=== PATIENT | female | born 1990 | race Caucasian/White ===

== ENCOUNTER 2018-05-22 07:00 | Day surgery (SDC) | payer OTHER ==
[~2018-05-22] VITALS: Ht 160 cm; Wt 58.1 kg
[~2018-05-22 07:00] MED LIST: CEFPROZIL500 MG PO; CIPRO500 MG PO; DOXYCYCLINE HY100 MG PO; DURICEF PO; FLAGYL500MG PO; LEVSIN/SL0.125 MG PO; ORPH100T PO; PANTOPRAZOLE SO20 MG PO; PHENERGAN25 MG PO; PREVACID30 MG PO; PROTONIX40 MG PO; TRAMADOL HCL-AP1 TAB PO; TYLENOL EXTRA500 MG PO; ZANTAC150 M3 PO
[2018-05-22] MEDS ORDERED: CYTOTEC100 MCG PO (17:53)
[2018-05-22] MEDS ORDERED: DOXYCYCLINE HY100 M2 PO (17:53)
== END 2018-05-22 13:00 | disposition home or self-care (01) ==
LOC: CIR.AMB 07:00 → ER 13:47 → EDSTATUS 14:00 → ER 14:13 → SEC-K 14:15 → ER 14:15 → SEC-K 22:11 → O/R 22:11 → SEC-K 22:35
DX: O02.1 Missed abortion (principal)

== ENCOUNTER 2018-12-07 03:29 | Emergency (ER) | payer OTHER ==
[~2018-12-07] VITALS: Ht 160 cm; Wt 62.6 kg
[~2018-12-07 03:29] MED LIST changes: +CYTOTEC100 MCG PO; +DOXYCYCLINE HY100 M2 PO
== END 2018-12-07 10:32 | disposition home or self-care (01) ==
LOC: ER 03:29
DX: N83.292 Other ovarian cyst, left side (principal); N83.291 Other ovarian cyst, right side; R10.2 Pelvic and perineal pain

== ENCOUNTER 2020-05-26 20:40 | Emergency (ER) | payer OTHER ==
[~2020-05-26] VITALS: Ht 160 cm; Wt 65.8 kg
== END 2020-05-26 23:30 | disposition home or self-care (01) ==
LOC: ER 20:40
DX: N93.8 Other specified abnormal uterine and vaginal bleeding (principal); Z33.1 Pregnant state, incidental

== ENCOUNTER 2020-11-25 00:37 | Emergency (ER) | payer OTHER ==
[~2020-11-25] VITALS: Ht 160 cm; Wt 63.5 kg
[2020-11-25] MEDS ORDERED: TENCON 50-3251 EACH PO (06:15)
== END 2020-11-25 06:24 | disposition home or self-care (01) ==
LOC: ER 00:37
DX: R51.9 Headache, unspecified (principal); F06.4 Anxiety disorder due to known physiological condition

== ENCOUNTER 2021-10-23 19:21 | Emergency (ER) | payer OTHER ==
[~2021-10-23] VITALS: Ht 160 cm; Wt 68.0 kg
[~2021-10-23 19:21] MED LIST changes: +TENCON 50-3251 EACH PO
[2021-10-23] MEDS ORDERED: PRENA1 TRUE CO1 EACH PO (19:59)
== END 2021-10-23 22:30 | disposition home or self-care (01) ==
LOC: ER 19:21
DX: O99.611 Diseases of the digestive system complicating pregnancy, first trimester (principal); K92.89 Other specified diseases of the digestive system; O21.8 Other vomiting complicating pregnancy; Z3A.08 8 weeks gestation of pregnancy

== ENCOUNTER 2021-11-16 13:17 | Day surgery (SDC) | payer OTHER ==
[~2021-11-16 13:17] MED LIST changes: +PRENA1 TRUE CO1 EACH PO
[2021-11-16] MEDS ORDERED: MORGIDOX100 MG PO (19:24)
[2021-11-16] MEDS ORDERED: NAPR500T14 PO (19:24)
== END 2021-11-16 22:00 | disposition home or self-care (01) ==
LOC: CIR.AMB 13:17
PROVIDERS: ATTEND Obstetrics & Gynecology
DX: O02.1 Missed abortion (principal); Z20.822 Contact with and (suspected) exposure to COVID-19; Z86.16 Personal history of COVID-19; M32.8 Other forms of systemic lupus erythematosus

== ENCOUNTER 2022-02-25 05:54 | Emergency (ER) | payer OTHER ==
[~2022-02-25] VITALS: Ht 160 cm; Wt 63.5 kg
[~2022-02-25 05:54] MED LIST changes: +MORGIDOX100 MG PO; +NAPR500T14 PO
== END 2022-02-25 13:25 | disposition home or self-care (01) ==
LOC: ER 05:54
DX: N80.9 Endometriosis, unspecified (principal)

== ENCOUNTER 2022-04-10 00:40 | Emergency (ER) | payer OTHER ==
[~2022-04-10] VITALS: Ht 160 cm; Wt 61.2 kg
[2022-04-10] MEDS ORDERED: TRIAZOLAM0.25 MG PO (01:07)
[2022-04-10] MEDS ORDERED: OXYC1TAB9 PO (01:07)
[2022-04-10] MEDS ORDERED: HALCION0.25 MG (01:07)
[2022-04-10] MEDS ORDERED: ONDANSETRON HCL4 MG PO (05:35)
[2022-04-10] MEDS ORDERED: PEPCID AC10 MG PO (05:35)
== END 2022-04-10 05:53 | disposition home or self-care (01) ==
LOC: ER 00:40
DX: R11.2 Nausea with vomiting, unspecified (principal)

== ENCOUNTER 2022-07-10 01:29 | Emergency (ER) | payer OTHER ==
[~2022-07-10] VITALS: Ht 160 cm; Wt 62.6 kg
[~2022-07-10 01:29] MED LIST changes: +HALCION0.25 MG; +ONDANSETRON HCL4 MG PO; +OXYC1TAB9 PO; +PEPCID AC10 MG PO; +TRIAZOLAM0.25 MG PO
== END 2022-07-10 06:33 | disposition home or self-care (01) ==
LOC: ER 01:29
DX: J10.1 Influenza due to other identified influenza virus with other respiratory manifestations (principal); Z20.822 Contact with and (suspected) exposure to COVID-19

== ENCOUNTER 2023-02-28 23:40 | Emergency (ER) | payer OTHER ==
[~2023-02-28] VITALS: Ht 160 cm; Wt 62.6 kg
== END 2023-03-01 15:42 | disposition home or self-care (01) ==
LOC: ER 23:40
PROVIDERS: General Practice
DX: O23.41 Unspecified infection of urinary tract in pregnancy, first trimester (principal); N39.0 Urinary tract infection, site not specified; Z3A.10 10 weeks gestation of pregnancy

== ENCOUNTER 2023-04-30 14:50 | Outpatient (CLI) | payer OTHER | END 2023-04-30 15:20 | disposition home or self-care (01) | LOC: PRENATAL 14:50 | PROVIDERS: ATTEND Obstetrics & Gynecology Maternal & Fetal Medicine | DX: O35.3XX0 Maternal care for (suspected) damage to fetus from viral disease in mother, not applicable or unspecified (principal); Z14.8 Genetic carrier of other disease; O44.00 Complete placenta previa NOS or without hemorrhage, unspecified trimester; Z3A.19 19 weeks gestation of pregnancy ==

== ENCOUNTER 2023-07-30 14:17 | Outpatient (CLI) | payer OTHER | END 2023-07-30 14:19 | disposition home or self-care (01) | LOC: PRENATAL 14:17 | PROVIDERS: ATTEND Obstetrics & Gynecology Maternal & Fetal Medicine | DX: O26.849 Uterine size-date discrepancy, unspecified trimester (principal); O36.8199 Decreased fetal movements, unspecified trimester, other fetus; O99.019 Anemia complicating pregnancy, unspecified trimester; Z3A.32 32 weeks gestation of pregnancy ==

== ENCOUNTER 2023-07-31 13:46 | Outpatient (CLI) | payer OTHER | END 2023-07-31 13:52 | disposition home or self-care (01) | LOC: PRENATAL 13:46 | PROVIDERS: ATTEND Obstetrics & Gynecology Maternal & Fetal Medicine | DX: Z76.1 Encounter for health supervision and care of foundling (principal) ==

== ENCOUNTER 2023-08-02 16:34 | Inpatient (IN) | payer OTHER ==
[~2023-08-02] VITALS: Ht 160 cm; Wt 70.8 kg
[2023-08-02 18:36] LABS: PH,URINE 6.5 (5.0-8.0); URINE APPEARANCE Cloudy; URINE BILIRRUBIN Negative (NEGATIVE); URINE BLOOD Negative; URINE COLOR Yellow; URINE LEUKOCYTE Negative; URINE NITRATE Negative; URINE PROTEIN Trace (NEGATIVE)
[2023-08-02 18:37] LABS: URINE BACTERIA 575.7 uL (0.0-1933); URINE EPITHELIAL CELLS 33.3 uL (0.0-38.8); URINE RBC 16.6 uL (0.0-20.8); URINE WBC 15.6 uL (0.0-23.2)
[2023-08-02 18:45] LABS: HEMATOCRIT 26.1 % (36.0-45.00); MEAN CELL VOLUME 82.2 fL (80.00-100.00); MEAN CORPUSCULAR HGB CONC 33.7 g/dl (32.0-36.0); PLATELET COUNT 173 K/uL (150-450); RED BLOOD COUNT 3.18 M/uL (4.00-6.00); RED CELL DISTRIBUTION WIDTH 14.2 % (11.5-14.5)
[2023-08-02 18:46] LABS: HEMOGLOBIN 8.8 g/dL (12.0-15.00); MEAN CORPUSCULAR HEMOGLOBIN 27.6 pg (27.00-32.0)
[2023-08-02 18:51] LABS: INR 0.95; PARTIAL THROMBOPLASTIN TIME 26.5 SECONDS (22.0-34.0)
[2023-08-02 18:56] LABS: ALBUMIN 2.8 gm/dL (3.4-5.0); BILIRUBIN TOTAL 0.17 mg/dL (0.3-1.2); CALCIUM 8.8 mg/dL (8.5-10.1); CREATININE SERUM 0.45 mg/dL (0.55-1.02); GFR 162.51; GLOBULINA 2.9 G/DL (2.4-3.5); POTASSIUM 3.51 mEq/L (3.5-5.1); TOTAL PROTEIN 5.7 gm/dL (6.4-8.2)
[2023-08-02 19:06] LABS: URINE CRYSTALS MODERATE /HPF; URINE GLUCOSE 100 MG/DL (NEGATIVE); URINE MUCUS MODERATE
[2023-08-03] MEDS ORDERED: PRENATABS RX T1 EACH PO (07:12)
[2023-08-04] MEDS ORDERED: MAXFE CAPLET1 EAC1 PO (08:55)
== END 2023-08-04 11:35 | disposition home or self-care (01) | DRG 832 ==
LOC: LDR 16:34 → OB/GYN 08-03 09:06
PROVIDERS: ADMIT Obstetrics & Gynecology; ATTEND Obstetrics & Gynecology
PROC: 4A1HXCZ Monitoring of Products of Conception, Cardiac Rate, External Approach (ICD-10-PCS; principal; 2023-08-02)
DX: O36.8130 Decreased fetal movements, third trimester, not applicable or unspecified (principal); O99.13 Other diseases of the blood and blood-forming organs and certain disorders involving the immune mechanism complicating the puerperium; D64.9 Anemia, unspecified; O26.893 Other specified pregnancy related conditions, third trimester; R10.2 Pelvic and perineal pain; Z3A.32 32 weeks gestation of pregnancy; Z20.822 Contact with and (suspected) exposure to COVID-19

== ENCOUNTER 2023-08-29 15:08 | Outpatient (CLI) | payer OTHER ==
[~2023-08-29 15:08] MED LIST changes: +MAXFE CAPLET1 EAC1 PO; +PRENATABS RX T1 EACH PO
== END 2023-08-29 15:10 | disposition home or self-care (01) ==
LOC: PRENATAL 15:08
PROVIDERS: ATTEND Obstetrics & Gynecology Maternal & Fetal Medicine
DX: O26.849 Uterine size-date discrepancy, unspecified trimester (principal); O36.8199 Decreased fetal movements, unspecified trimester, other fetus; O99.019 Anemia complicating pregnancy, unspecified trimester; Z3A.36 36 weeks gestation of pregnancy

== ENCOUNTER 2023-09-18 12:16 | Inpatient (IN) | payer OTHER ==
[~2023-09-18] VITALS: Ht 160 cm; Wt 4.1 kg
[2023-09-18 12:52] LABS: HEMATOCRIT 35.7 % (36.0-45.00); HEMOGLOBIN 11.8 g/dL (12.0-15.00); MEAN CELL VOLUME 83.4 fL (80.00-100.00); MEAN CORPUSCULAR HEMOGLOBIN 27.6 pg (27.00-32.0); MEAN CORPUSCULAR HGB CONC 33.1 g/dl (32.0-36.0); PLATELET COUNT 188 K/uL (150-450); RED BLOOD COUNT 4.28 M/uL (4.00-6.00)
[2023-09-18 12:52] LABS: URINE APPEARANCE Clear; URINE BILIRRUBIN Negative (NEGATIVE); URINE BLOOD Negative; URINE COLOR Yellow; URINE GLUCOSE Negative (NEGATIVE); URINE LEUKOCYTE Negative; URINE NITRATE Negative; URINE PROTEIN Trace (NEGATIVE); URINE UROBILINOGEN 0.2 E.U./dl
[2023-09-18 12:54] LABS: RED CELL DISTRIBUTION WIDTH 18.5 % (11.5-14.5)
[2023-09-18 12:54] LABS: URINE BACTERIA 1262.4 uL (0.0-1933); URINE EPITHELIAL CELLS 29.9 uL (0.0-38.8); URINE RBC 16.5 uL (0.0-20.8); URINE WBC 19.7 uL (0.0-23.2)
[2023-09-18 13:14] LABS: INR < 0.93; PARTIAL THROMBOPLASTIN TIME 27.8 SECONDS (22.0-34.0); PROTHROMBIN TIME 9.5 SECONDS (9.0-11.5)
[2023-09-18 13:17] LABS: ALBUMIN 2.9 gm/dL (3.4-5.0); BILIRUBIN TOTAL 0.33 mg/dL (0.3-1.2); CREATININE SERUM 0.61 mg/dL (0.55-1.02); GFR 113.66; GLOBULINA 3.5 G/DL (2.4-3.5); POTASSIUM 3.65 mEq/L (3.5-5.1); TOTAL PROTEIN 6.4 gm/dL (6.4-8.2)
[2023-09-19] MEDS ORDERED: CEFAZOLIN SODIUM 1,000 MG VIAL ONE (09:12)
[2023-09-19] MEDS ORDERED: ERYTHROMYCIN BASE 1 GM TUBE OP ONE ×2 (09:13→14:30)
[2023-09-19] MEDS ORDERED: OXYTOCIN 10 UNITS/ML VIAL ONE (09:13)
[2023-09-19] MEDS ORDERED: CEFAZOLIN SODIUM 1,000 MG VIAL IV ONE (14:30)
[2023-09-19] MEDS ORDERED: OXYTOCIN 10 UNITS/ML VIAL IV ONE (14:30)
[2023-09-19] MEDS ORDERED: OXYTOCIN 1,000 ML IV SCH (15:00)
[2023-09-19] MEDS ORDERED: ERYTHROMYCIN BASE 1 GM TUBE OP SCH (15:00)
[2023-09-19] MEDS ORDERED: CHLORHEXIDINE GLUCONATE 120 ML BOTTLE TP SCH (15:00)
[2023-09-19] MEDS ORDERED: RINGERS SOLUTION,LACTATED 1,000 ML IV SCH (15:00)
[2023-09-19] MEDS ORDERED: OxyCODONE HCL/APAP UD (PERCOCET) PO PRN ×2 (15:15)
[2023-09-19 15:19] LABS: ABG PH 7.276 (7.35-7.45); ABG pCO2 51.8 mmHg (35-45)
[2023-09-19 15:20] LABS: ABG PO2 17.1 mmHg (80-100); BASE EXCESS -3.8 mmol/l; BICARBONATE 23.6 mmol/l (23-25); SaO2 18.3 %; Tco2 25.1 mmol/l; o2 21 %
[2023-09-19] MEDS ORDERED: ONDANSETRON HCL 2 MG/ML VIAL ONE (16:09)
[2023-09-19] MEDS ORDERED: DOCUSATE SODIUM 100MG CAP PO SCH (17:00)
[2023-09-19] MEDS ORDERED: KETOROLAC TROMETHAMINE 15 MG VIAL ONE (17:33)
[2023-09-19] MEDS ORDERED: KETOROLAC TROMETHAMINE 30 MG VIAL IV SCH (18:00)
[2023-09-20 07:50] LABS: HEMATOCRIT 27.6 % (36.0-45.00); MEAN CELL VOLUME 82.3 fL (80.00-100.00); MEAN CORPUSCULAR HGB CONC 33.5 g/dl (32.0-36.0); PLATELET COUNT 160 K/uL (150-450); RED BLOOD COUNT 3.36 M/uL (4.00-6.00); RED CELL DISTRIBUTION WIDTH 18.5 % (11.5-14.5)
[2023-09-20 08:02] LABS: HEMOGLOBIN 9.2 g/dL (12.0-15.00); MEAN CORPUSCULAR HEMOGLOBIN 27.3 pg (27.00-32.0)
[2023-09-20] MEDS ORDERED: SIMETHICONE 125 MG CAPSULE PO SCH (09:00)
[2023-09-20] MEDS ORDERED: ACETAMINOPHEN WITH CODEINE 1 UDTAB TABLET PO PRN (09:00)
[2023-09-20] MEDS ORDERED: NAPROXEN 500 MG TABLET PO SCH (09:00)
[2023-09-20] MEDS ORDERED: IBUprofen 800 MG TABLET PO SCH (09:00)
[2023-09-22] MEDS ORDERED: NAPR500T14 PO (08:39)
[2023-09-22] MEDS ORDERED: tylenol #3 PO (08:39)
== END 2023-09-22 12:47 | disposition home or self-care (01) | DRG 788 ==
LOC: O/R 09-19 07:50 → OB/GYN 09-19 07:50
PROVIDERS: Student in an Organized Health Care Education/Training Program; ADMIT Obstetrics & Gynecology; ATTEND Obstetrics & Gynecology
PROC: 4A1HXCZ Monitoring of Products of Conception, Cardiac Rate, External Approach (ICD-10-PCS; 2023-09-19)
PROC: 10D00Z1 Extraction of Products of Conception, Low, Open Approach (ICD-10-PCS; principal; 2023-09-19 09:00)
DX: O66.0 Obstructed labor due to shoulder dystocia (principal); O36.63X0 Maternal care for excessive fetal growth, third trimester, not applicable or unspecified; Z3A.39 39 weeks gestation of pregnancy; Z37.0 Single live birth; Z20.822 Contact with and (suspected) exposure to COVID-19

== ENCOUNTER 2025-04-09 22:29 | Emergency (ER) | payer OTHER ==
[~2025-04-09] VITALS: Ht 160 cm; Wt 64.4 kg
[~2025-04-09 22:29] MED LIST changes: +tylenol #3 PO
[2025-04-10] MEDS ORDERED: 0.9 % SODIUM CHLORIDE 1,000 ML IV STA (00:03)
[2025-04-10] MEDS ORDERED: ONDANSETRON HCL 2 MG/ML VIAL IV STA (00:03)
[2025-04-10] MEDS ORDERED: BUTALB/ACETAMINOPHEN/CAFFEINE 1 TAB TABLET PO STA (00:11)
[2025-04-10] MEDS ORDERED: BUTALB/ACETAMINOPHEN/CAFFEINE 1 TAB TABLET PO ONE (00:32)
[2025-04-10] MEDS ORDERED: ONDANSETRON HCL 2 MG/ML VIAL ONE (00:32)
[2025-04-10 01:15] LABS: BASO % 0.8 % (0.1-1.2); EOS # 0.10 (0.04-0.54); EOS % 1.6 % (0.7-7.0); LYMPH # 1.83 (1.18-3.74); LYMPH % 28.5 % (19.3-53.1); MEAN PLATELET VOLUME 10.10 fl (9.4-12.4); MONO # 0.77 (0.24-0.82); MONO % 12.0 % (4.7-12.5); NEUT # 3.65 (1.56-6.13); NEUT % 56.8 % (34.0-71.1); RED CELL DISTRIBUTION WIDTH 12.0 % (11.6-14.4)
[2025-04-10 01:50] LABS: ALT/SGPT 18.0 U/L (12-78); AST/SGOT 5.0 U/L (15-37); BILIRUBIN TOTAL 0.26 mg/dL (0.3-1.2); BUN CREA RATIO 22.0 (7.0-25.0); CREATININE SERUM 0.63 mg/dL (0.55-1.02); GFR 108.83; GLOBULINA 3.2 G/DL (2.4-3.5); GLUCOSE FASTING 92.0 mg/dL (65-100); OSMOLALITY SERUM 281.0 MOSM/KG (275-295)
[2025-04-10 02:53] LABS: URINE APPEARANCE Clear; URINE BILIRRUBIN Negative (NEGATIVE); URINE BLOOD Trace; URINE COLOR Dark Yellow; URINE GLUCOSE Negative (NEGATIVE); URINE KETONE Negative (NEGATIVE); URINE LEUKOCYTE Moderate; URINE NITRATE Positive; URINE PROTEIN Negative (NEGATIVE); URINE UROBILINOGEN 1.0 E.U./dl
[2025-04-10 02:56] LABS: URINE BACTERIA 185.9 uL (0.0-1933); URINE EPITHELIAL CELLS 26.7 uL (0.0-38.8); URINE RBC 17.1 uL (0.0-20.8); URINE WBC 163.0 uL (0.0-23.2)
[2025-04-10 03:04] LABS: URINE CAST 0.00 uL (0.0-1.40)
== END 2025-04-10 07:57 | disposition home or self-care (01) ==
LOC: ER 22:29
PROVIDERS: Physician Assistant Medical
DX: G43.909 Migraine, unspecified, not intractable, without status migrainosus (principal); F41.8 Other specified anxiety disorders